=== PATIENT | male | born 1955 | race Caucasian/White ===

== ENCOUNTER → 2017-11-03 14:38 | Outpatient (CLI) | payer MEDICARE, SELFPAY ==
[2017-11-03 18:56] LABS: Amphetamine/Metha Screen,Urine Negative ng/mL (<1000); Barbiturates Screen,Urine Negative ng/mL (<200); Benzodiazepines Screen,Urine Positive ng/mL (<200); Cannabinoid Screen,Urine Positive ng/mL (<50); Cocaine Screen,Urine Negative ng/mL (<300); Methadone Screen,Urine Negative ng/mL (<300); Opiate Screen,Urine Positive ng/mL (<300); Phencyclidine Screen,Urine Negative ng/mL (<25)
== END ==
PROVIDERS: Visit Provider Emergency Medicine
DX: G89.29 Other chronic pain (principal)
CPT/HCPCS: 80305

== ENCOUNTER → 2017-12-26 14:28 | Outpatient (CLI) | payer MEDICARE, SELFPAY ==
[2017-12-26 18:17] LABS: Amphetamine/Metha Screen,Urine Negative ng/mL (<1000); Barbiturates Screen,Urine Negative ng/mL (<200); Benzodiazepines Screen,Urine Negative ng/mL (<200); Cannabinoid Screen,Urine Negative ng/mL (<50); Cocaine Screen,Urine Negative ng/mL (<300); Methadone Screen,Urine Negative ng/mL (<300); Opiate Screen,Urine Positive ng/mL (<300); Phencyclidine Screen,Urine Negative ng/mL (<25)
== END ==
PROVIDERS: Visit Provider Emergency Medicine
DX: Z79.899 Other long term (current) drug therapy (principal)
CPT/HCPCS: 80305

== ENCOUNTER → 2018-01-26 13:49 | Outpatient (CLI) | payer MEDICARE, SELFPAY ==
[2018-01-26 14:57] LABS: Amphetamine/Metha Screen,Urine Negative ng/mL (<1000); Barbiturates Screen,Urine Negative ng/mL (<200); Benzodiazepines Screen,Urine Negative ng/mL (<200); Cannabinoid Screen,Urine Negative ng/mL (<50); Cocaine Screen,Urine Negative ng/mL (<300); Methadone Screen,Urine Negative ng/mL (<300); Opiate Screen,Urine Negative ng/mL (<300); Phencyclidine Screen,Urine Negative ng/mL (<25)
== END ==
PROVIDERS: Visit Provider Emergency Medicine
DX: Z79.899 Other long term (current) drug therapy (principal)
CPT/HCPCS: 80305

== ENCOUNTER → 2018-02-23 18:21 | Outpatient (CLI) | payer MEDICARE, SELFPAY ==
[2018-02-23 18:44] LABS: Amphetamine/Metha Screen,Urine Negative ng/mL (<1000); Barbiturates Screen,Urine Negative ng/mL (<200); Benzodiazepines Screen,Urine Positive ng/mL (<200); Cannabinoid Screen,Urine Negative ng/mL (<50); Cocaine Screen,Urine Negative ng/mL (<300); Methadone Screen,Urine Negative ng/mL (<300); Opiate Screen,Urine Positive ng/mL (<300); Phencyclidine Screen,Urine Negative ng/mL (<25)
== END ==
PROVIDERS: Visit Provider Emergency Medicine
DX: G89.29 Other chronic pain (principal)
CPT/HCPCS: 80305

== ENCOUNTER → 2018-04-27 14:42 | Outpatient (CLI) | payer MEDICARE, MEDICAID, SELFPAY ==
[2018-04-27 15:35] LABS: Amphetamine/Metha Screen,Urine Negative ng/mL (<1000); Barbiturates Screen,Urine Negative ng/mL (<200); Benzodiazepines Screen,Urine Negative ng/mL (<200); Cannabinoid Screen,Urine Negative ng/mL (<50); Cocaine Screen,Urine Negative ng/mL (<300); Methadone Screen,Urine Negative ng/mL (<300); Opiate Screen,Urine Positive ng/mL (<300); Phencyclidine Screen,Urine Negative ng/mL (<25)
[2018-05-01 09:21] LABS: Alprazolam Negative (Cutoff=100); Benzodiazepines Negative ng/mL (Cutoff=100); Clonazepam Negative (Cutoff=100); Flurazepam Negative (Cutoff=100); Lorazepam Negative (Cutoff=100); Midazolam Negative (Cutoff=100); Temazepam Negative (Cutoff=100); Triazolam Negative (Cutoff=100)
== END ==
PROVIDERS: Visit Provider Emergency Medicine
DX: G89.29 Other chronic pain (principal); Z79.899 Other long term (current) drug therapy
CPT/HCPCS: 80305; 80346

== ENCOUNTER → 2018-10-23 17:14 | Outpatient (CLI) | payer MEDICARE, MEDICAID, SELFPAY ==
[2018-10-23 19:18] LABS: Amphetamine/Metha Screen,Urine Negative ng/mL (<1000); Barbiturates Screen,Urine Negative ng/mL (<200); Benzodiazepines Screen,Urine Negative ng/mL (<200); Cannabinoid Screen,Urine Negative ng/mL (<50); Cocaine Screen,Urine Negative ng/mL (<300); Methadone Screen,Urine Negative ng/mL (<300); Opiate Screen,Urine Positive ng/mL (<300); Phencyclidine Screen,Urine Negative ng/mL (<25)
== END ==
PROVIDERS: Visit Provider Emergency Medicine
DX: G89.29 Other chronic pain (principal)
CPT/HCPCS: 80305

== ENCOUNTER → 2019-01-14 16:41 | Outpatient (CLI) | payer MEDICARE, MEDICAID, SELFPAY ==
[2019-01-14 18:19] LABS: Amphetamine/Metha Screen,Urine Negative ng/mL (<1000); Barbiturates Screen,Urine Negative ng/mL (<200); Benzodiazepines Screen,Urine Negative ng/mL (<200); Cannabinoid Screen,Urine Negative ng/mL (<50); Cocaine Screen,Urine Negative ng/mL (<300); Methadone Screen,Urine Negative ng/mL (<300); Opiate Screen,Urine Positive ng/mL (<300); Phencyclidine Screen,Urine Negative ng/mL (<25)
[2019-01-26 02:07] LABS: Alprazolam Negative (Cutoff=100); Benzodiazepines Negative ng/mL (Cutoff=100); Clonazepam Negative (Cutoff=100); Flurazepam Negative (Cutoff=100); Lorazepam Negative (Cutoff=100); Midazolam Negative (Cutoff=100); Temazepam Negative (Cutoff=100); Triazolam Negative (Cutoff=100)
== END ==
PROVIDERS: Visit Provider Nurse Practitioner Family
DX: G89.29 Other chronic pain (principal); I10 Essential (primary) hypertension; Z79.899 Other long term (current) drug therapy
CPT/HCPCS: 80305; 80346

== ENCOUNTER → 2020-11-20 08:00 | Outpatient (CLI) | payer MEDICARE, MEDICAID, SELFPAY ==
[2020-11-21 11:43] LABS: Barbiturates Screen,Urine Negative ng/ml (<200)
[2020-11-21 11:44] LABS: Amphetamine/Metha Screen,Urine Negative ng/ml (<1000); Benzodiazepines Screen,Urine Negative ng/ml (<200)
[2020-11-21 11:45] LABS: Cannabinoid Screen,Urine Negative ng/ml (<50)
[2020-11-21 11:46] LABS: Cocaine Screen,Urine Negative ng/ml (<300); Methadone Screen,Urine Negative ng/ml (<300)
[2020-11-21 11:47] LABS: Opiate Screen,Urine Positive ng/ml (<300); Phencyclidine Screen,Urine Negative ng/ml (<25)
== END ==
PROVIDERS: Visit Provider Emergency Medicine
DX: G89.4 Chronic pain syndrome (principal)
CPT/HCPCS: 80305

== ENCOUNTER 2021-02-20 12:20 | Observation (INO) | payer MEDICARE, MEDICAID, SELFPAY ==
[2021-02-20] VITALS (13 sets, daily range): BP systolic 128–173; BP diastolic 60–98; PULSE 85–115; RESP 23–34; TEMP 36.7–37.3; O2SAT 92–99; BMI 26.9; BMI 26.1; BMI 26.2
--- NOTE | 2021-02-20 12:27 | XR_ITS ---
PROCEDURE INFORMATION: Exam: XR Chest Exam date and time: 02/20/2021 12:27 PM Age: 65 years old Clinical indication: Shortness of breath; Patient HX: SOB, copd, smoker TECHNIQUE: Imaging protocol: XR of the chest. Views: 1 view. COMPARISON: No relevant prior studies available. FINDINGS: Tubes, catheters and devices: Loop recording device projects over the left hemithorax. Lungs: Unremarkable. No consolidation. Pleural spaces: Unremarkable. No pleural effusion. No pneumothorax. Heart/Mediastinum: Unremarkable. No cardiomegaly. Bones/joints: Median sternotomy wires. Partially imaged ACDF hardware. Reverse right total shoulder arthroplasty. IMPRESSION: No acute cardiopulmonary abnormality.
--- NOTE | 2021-02-20 12:34 | ECG_ITS ---
APPROVED REPORT Exam: Resting ECG HR:95 bpm ECG Measurements Heart Rate 95 AXES MS 118 P 79 QRSd 86 QRS -11 QT 368 T 91 QTc 462 Conclusion Normal sinus rhythm Nonspecific ST and T wave abnormality Prolonged QT Abnormal ECG Electronically signed by : Franki Young MD 02/20/2021 21:00:35
[2021-02-20 12:38] LABS: Coronavirus 19, PCR Not Detected (NotDetected); Influenza A, PCR Not Detected (NotDetected); Influenza B, PCR Not Detected (NotDetected)
--- NOTE | 2021-02-20 12:47 | PC.NURSE ---
rad at bedside
[2021-02-20 13:15] LABS: Basophils # 0.1 K/mm3 (0-0.2); Basophils % 0.4 % (0.1-2.0); Eosinophils # 0.3 K/mm3 (0.0-0.4); Eosinophils % 2.2 % (0.1-12.0); Hematocrit 41.8 % (42.0-52.0); Hemoglobin 13.7 g/dL (14.1-18.0); Lymphocytes # 2.4 K/mm3 (0.7-4.5); Mean Corpuscular HGB Conc 32.7 g/dL (31.8-35.4); Mean Corpuscular Hemoglobin 30.4 pg (27.0-31.2); Mean Corpuscular Volume 92.9 fl (80-94); Monocytes # 0.8 K/mm3 (0.1-1.0); Monocytes % 5.1 % (1.7-9.3); Neutrophils # 11.6 K/mm3 (1.8-7.8); Neutrophils % 76.3 % (37.0-80.0); Platelet Count 436 K/mm3 (142-424); Red Cell Distribution Width 14.5 % (11.5-17.5); White Blood Count 15.2 K/mm3 (4.8-10.8)
[2021-02-20 13:16] LABS: Chloride 102 mmol/L (98-107); Sodium 139 mmol/L (136-145)
[2021-02-20 13:18] LABS: Blood Urea Nitrogen 10 mg/dl (9-20); Creatinine Clearance Estimated 81 mL/min (50-200); Estimated Glomerular Filt Rate 97 ml/min (>60); GFR (African American) 117 ML/MIN (>60)
[2021-02-20 13:19] LABS: Alanine Aminotransferase 16 U/L (12-78); Albumin Level 4.1 g/dl (3.5-5.0); Albumin/Globulin Ratio 1.3 (1.1-1.8); Alkaline Phosphatase 80 U/L (38-126); Aspartate Amino Transferase 28 U/L (17-59); Bilirubin,Total 0.6 mg/dl (0.2-1.3); Calcium 8.5 mg/dl (8.4-10.2); Carbon Dioxide 27 mmol/L (22.0-30.0); Globulin 3.1 g/dL (1.3-3.2); Glucose 103 mg/dl (74-100); Total Protein,Serum 7.2 g/dl (6.3-8.2)
[2021-02-20 13:21] LABS: MANUAL DIFFERENTIAL MANUAL DIFFERENTIAL (MANUAL DIFF)
[2021-02-20 13:27] LABS: Lactic Acid 0.9 mmol/L (0.7-2.1)
[2021-02-20 13:32] LABS: Troponin I < 0.01 ng/ml (0.00-0.034)
[2021-02-20 13:44] LABS: Eosinophils % 1 % (0-3); Lymphocytes % 15 % (10-50); Monocytes % 4 % (2-9); Neutrophils % 80 % (42-76); Total Cells Counted 100
[2021-02-20 13:45] LABS: Hypochromasia 1+; Macrocytosis 1+; Platelet Estimate Normal
--- NOTE | 2021-02-20 15:15 | HMH.EDGENADL ---
ED Disposition Clinical Impression: COPD exacerbation Disposition: Admitted As Inpatient Condition on Discharge: Fair Instructions: DI for Chronic Obstructive Pulmonary Disease Referrals: Jordan Schmidt MD [Primary Care Provider] - - Critical Care Critical Care Time: No Attestation: On 02/20/21, the high probability of a clinically significant, sudden or life threatening deterioration of the following system(s) required my full and direct attention, intervention and personal management. The time I documented below is in addition to time spent performing reported procedures but includes the following listed in this critical care notation. Medical Decision Making - Medical Records Medical records reviewed: Yes: I reviewed the patient's medical records. - Ricki Inquiry Pt receiving controlled substance: No Vital Signs: 02/20/21 12:21 Temperature 98.2 F Temperature Source Oral Pulse Rate [Radial] 102 H Respiratory Rate 30 H Blood Pressure [Right Arm] 173/98 H Blood Pressure Mean [Right Arm] 123 Blood Pressure Position [Right Arm] Sitting 02 Sat by Pulse Oximetry 98 Oxygen Delivery Method Room Air - Lab Data Lab Results 02/20/21 12:31: SARS-CoV-2 (PCR) Not detected, Influenza A Untype (PCR) Not detected, Influenza Type B (PCR) Not detected 02/20/21 12:45: WBC 15.2 H, RBC 4.50 L, Hgb 13.7 L, Hct 41.8 L, MCV 92.9, MCH 30.4, MCHC 32.7, RDW 14.5, Plt Count 436 H, MPV 9.0, Neut % (Auto) 76.3, Lymph % (Auto) 16.0, [place] % (Auto) 5.1, Eos % (Auto) 2.2, Baso % (Auto) 0.4, Neut # (Auto) 11.6 H, Lymph # (Auto) 2.4, [place] # (Auto) 0.8, Eos # (Auto) 0.3, Baso # (Auto) 0.1, Total Counted 100, Neutrophils % (Manual) 80 H, Lymphocytes % (Manual) 15, Monocytes % (Manual) 4, Eosinophils % (Manual) 1, Platelet Estimate Normal, Hypochromasia 1+, Macrocytosis 1+ 02/20/21 12:45: Sodium 139, Potassium 4.0, Chloride 102, Carbon Dioxide 27, Anion Gap 14.0, BUN 10, Creatinine 0.80, Estimated Creat Clear 81, Estimated GFR 97, Est GFR ( Amer) 117, Glucose 103 H, Calcium 8.5, Total Bilirubin 0.6, AST 28, ALT 16, Alkaline Phosphatase 80, Troponin I < 0.01, Total Protein 7.2, Albumin 4.1, Globulin 3.1, Albumin/Globulin Ratio 1.3 02/20/21 12:45: Lactate 0.9 Result diagrams: 02/20/21 12:45 02/20/21 12:45 Orders (Tests/Meds): ED MEDICATIONS Generic Name Dose Route Start Last Admin Trade Name Freq PRN Reason Stop Dose Admin Acetaminophen 650 mg 02/20/21 15:02 Acetaminophen 325mg Tab PO 03/22/21 15:01 Q4HP PRN Fever or Mild Pain Hydrocodone Bitart/Acetaminophen 1 tab 02/20/21 15:02 Hydrocodone/Apap 5/325 Mg Tablet PO 03/22/21 15:01 Q4HP PRN Mild to Moderate Pain Albuterol/Ipratropium 3 ml 02/20/21 14:00 02/20/21 14:15 Ipratropium/Albuterol 3 Ml [facility] [place] 03/22/21 13:59 3 ml Q1H ROLO Administration Enoxaparin Sodium 40 mg 02/21/21 09:00 Enoxaparin 40mg/0.4ml Syringe SQ 03/23/21 08:59 DAILY ROLO Azithromycin 500 mg/ Sodium 250 mls @ 250 mls/hr 02/20/21 15:00 Chloride IV 03/06/21 14:59 Q24H ROLO Ceftriaxone Sodium 1 gm/ 50 mls @ 100 mls/hr 02/20/21 15:00 02/20/21 15:13 Sodium Chloride IV 03/06/21 14:59 100 mls/hr Q24H ROLO Administration Nicotine 21 mg 02/20/21 15:02 Nicotine 21mg/24hr Patch TD 03/22/21 15:01 DAILYP PRN Nicotine Cravings Ondansetron HCl 4 mg 02/20/21 15:02 Ondansetron 4mg/2ml Vial IV 03/22/21 15:01 Q8HP PRN Nausea Sodium Chloride 3 ml 02/20/21 15:00 Sodium Chloride 3% 15ml [facility] [place] 03/22/21 14:59 ONCE PRN INDUCE SPUTUM COLLECTION Discontinued Medications Generic Name Dose Route Start Last Admin Trade Name Emilq PRN Reason Stop Dose Admin Albuterol/Ipratropium 3 ml 02/20/21 13:16 02/20/21 13:31 Ipratropium/Albuterol 3 Ml Neb IH 02/20/21 13:17 3 ml ONCE ONE Administration Ketorolac Tromethamine 30 mg 02/20/21 13:56 02/20/21 14:05 Ketorolac 30mg/Ml Vial IV 11
--- NOTE | 2021-02-20 15:44 | PC.NURSE ---
attempted to call report, call back in about 5 mins the nurse is in a pt's room
--- NOTE | 2021-02-20 17:06 | PC.NURSE ---
pt arrived to the floor at this time
--- NOTE | 2021-02-20 18:50 | PC.NURSE ---
PT IS OAX4, ABLE TO MAKE NEEDS KNOWN TO STAFF. ADMITTED FOR COPD EXACERBATION.
--- NOTE | 2021-02-20 20:39 | HMH.HP ---
*Admission Date: 02/20/21 *Chief complaint: sob *History of present illness: this patient presented to pcp office with progressive sob-pt was sent to the ed- 5-year-old male with past medical history of COPD and hypertension who presents to the emergency department with chief complaint of shortness of breath. Patient states that has been experiencing worsening shortness of breath for the last month despite being on his home inhalers. Patient saw Dr. Schmidt in clinic today, and was told to come to the emergency department to be admitted to the hospital. On arrival, patient is 88% O2 sats on room air, but tachypneic and increased work of breathing. He admits to thick, large amount of sputum production that is foul, fevers or chills. pt was admitted for treatment with ivf and meds and resp treatment [facility] History I have reviewed the patient's past medical history: Yes Medical History: Reports:: Anxiety, Congestive Heart Failure, Chronic Obstructive Pulmonary Disease (COPD), Diabetes Mellitus Type 2, Hyperlipidemia, Hypertension, Peripheral Artery Disease *Have you ever received a pneumonia vaccine?: No *Have you received a flu vaccine this season?: No Laterality Cases: Right: Arthroscopy Knee, Arthroscopy Shoulder Other Surgeries: Yes: Appendectomy, CABG, Cardiac Surgery, Cholecystectomy, Colonoscopy Amputation: No Fractures: No - *Social History Last grade of school completed: High school graduate Smoking Status: Former smoker Tobacco Type: cigarettes # Packs/Day (cigarettes): 1 #Yrs smoked (if former smoker): 47 Alcohol Intake: never Substance Use Type: denies use *Occupational Status:: disabled Housing: house *Travel in the last 8 weeks: None - Psychiatric History Pschychiatric History:: Reports:: Anxiety Family Hx:: Cancer, Heart Attack, Hypertension, Coronary Artery Disease, Hyperlipidemia Review of Systems - Review of Systems Review of systems:: pertinent systems reviewed and negative unless documented below - Constitutional Reports chills, Reports fever(s), Reports weakness - Eyes Denies change in vision - ENT Denies sore throat - *Cardiovascular Reports shortness of breath, Denies chest pain - *Respiratory Reports change in phlegm color, Reports cough, Reports shortness of breath, Denies coughing up blood - *Gastrointestinal Denies abdominal pain - *Genitourinary Denies blood in urine - *Musculoskeletal Denies joint swelling - Integumentary/Breasts Denies rash - *Neurologic Denies abnormal speech, Denies dizziness, Denies headache(s), Denies loss of vision, Denies seizure-like activity - Psychiatric Denies behavioral changes Meds Home Medications Medication Instructions Recorded Confirmed Type ipratropium 0.5 mg-albuterol 3 mg 3 ml INHALATION Q6H ml 11/03/17 02/20/21 History (2.5 mg base)/3 mL nebulization soln albuterol sulfate 90 mcg/actuation 2 puff INHALATION Q6H PRN #18 g 07/01/19 02/20/21 Rx aerosol inhaler albuterol sulfate 2.5 mg/0.5 mL 5 mg INHALATION QID PRN #30 each 11/16/19 02/20/21 Rx solution for nebulization Atorvastatin Calcium [Lipitor 40mg 40 mg PO QHS 02/20/21 02/20/21 History Tab] Fluticasone/Umeclidin/Vilanter 1 inh INHALATION DAILY 02/20/21 02/20/21 History [Trelegy Ellipta] Gabapentin 800 mg PO BID 02/20/21 02/20/21 History Metoprolol Tartrate [Lopressor 75 mg PO BID 02/20/21 02/20/21 History 25mg tablet] diazePAM [Valium 5mg tablets] 5 mg PO BID 02/20/21 02/20/21 History lisinopriL [Prinivil 10mg Tablet] 10 mg PO DAILY 02/20/21 02/20/21 History Oxycodone HCl [Oxycodone 5mg tab 15 mg PO QIDP PRN 02/21/21 02/21/21 History (IR)] Allergies Allergy/AdvReac Type Severity Reaction Status Date / Time codeine Allergy Intermediate Rash Verified 02/20/21 11:44 ketorolac [From Toradol] AdvReac Mild Verified 02/20/21 11:44 Exam Vital signs and Labs for Last 24 Hours: Temp Pulse Resp BP Pulse Ox 98.1 F 115 H 34 H 158/66
--- NOTE | 2021-02-20 23:04 | P.CONPHA_ITS ---
[facility] Pharmacy VTE Monitoring - Patient Demographics Admission date: 02/20/21 Report Date: 02/20/21 Time: 23:04 Allergies/Adverse Reactions: Patient Allergies codeine Allergy (Intermediate, Verified 02/20/21 11:44) Rash ketorolac [From Toradol] Adverse Reaction (Mild, Verified 02/20/21 11:44) Height: 1.73 m Weight: 78.046 kg Patient Problems: Current Active Problems COPD exacerbation (Acute) - VTE Risk Labs: VTE Related Lab Results Hgb 13.7 g/dL (14.1-18.0) L 02/20/21 12:45 Hct 41.8 % (42.0-52.0) L 02/20/21 12:45 Plt Count 436 K/mm3 (142-424) H 02/20/21 12:45 BUN 10 mg/dl (9-20) 02/20/21 12:45 Creatinine 0.80 mg/dl (0.66-1.25) 02/20/21 12:45 Estimated Creat Clear 81 mL/min (50-200) 02/20/21 12:45 Clinical Trial Participant: No - Prophylaxis VTE Prophylaxis Ordered?: Yes Types of VTE Prophylaxis: TEDS Knee High, Pharmacological Pharmacologic Type: Enoxaparin
--- NOTE | 2021-02-20 23:20 | PC.NURSE ---
pt states he can not take [place] because he will get kicked out of pain control program.
[2021-02-21] VITALS (9 sets, daily range): BP systolic 112–135; BP diastolic 56–74; PULSE 88–107; RESP 18–22; TEMP 36.5–37.1; O2SAT 92–97; BMI 25.9
--- NOTE | 2021-02-21 05:13 | PC.NURSE ---
Patient has been very agitated about wanting pain medication. Patient states that he takes oxycodone 15mg PO every 4 hours daily. External medication history was looked at and no reconcile of said medication is noted. Patient refuses to take norco (see previous nurse note). Pecocet 5mg patient agreed to take. MD aware.
[2021-02-21 05:38] LABS: POC Glucose,Bedside 267 (70-110)
--- NOTE | 2021-02-21 08:29 | HMH.PHAINT ---
Verified home medication list with [facility] pharmacy and Dr. Schmidt office visits
--- NOTE | 2021-02-21 08:46 | HMH.ACPN2 ---
Internal Medicine - PN: Subj *Date: 02/21/21 *Time: 08:00 Interval history: pt sitting up in bed asking about pain meds, states he feels bad Exam Vital signs and Labs for Last 24 Hours: Temp Pulse Resp BP Pulse Ox 98.2 F 102 H 20 135/61 95 02/21/21 08:00 02/21/21 08:00 02/21/21 08:00 02/21/21 08:00 02/21/21 08:00 Laboratory Results - last 24 hr 02/20/21 12:31: SARS-CoV-2 (PCR) Not detected, Influenza A Untype (PCR) Not detected, Influenza Type B (PCR) Not detected 02/20/21 12:45: WBC 15.2 H, RBC 4.50 L, Hgb 13.7 L, Hct 41.8 L, MCV 92.9, MCH 30.4, MCHC 32.7, RDW 14.5, Plt Count 436 H, MPV 9.0, Neut % (Auto) 76.3, Lymph % (Auto) 16.0, [place] % (Auto) 5.1, Eos % (Auto) 2.2, Baso % (Auto) 0.4, Neut # (Auto) 11.6 H, Lymph # (Auto) 2.4, [place] # (Auto) 0.8, Eos # (Auto) 0.3, Baso # (Auto) 0.1, Total Counted 100, Neutrophils % (Manual) 80 H, Lymphocytes % (Manual) 15, Monocytes % (Manual) 4, Eosinophils % (Manual) 1, Platelet Estimate Normal, Hypochromasia 1+, Macrocytosis 1+ 02/20/21 12:45: Sodium 139, Potassium 4.0, Chloride 102, Carbon Dioxide 27, Anion Gap 14.0, BUN 10, Creatinine 0.80, Estimated Creat Clear 81, Estimated GFR 97, Est GFR ( Amer) 117, Glucose 103 H, Calcium 8.5, Total Bilirubin 0.6, AST 28, ALT 16, Alkaline Phosphatase 80, Troponin I < 0.01, Total Protein 7.2, Albumin 4.1, Globulin 3.1, Albumin/Globulin Ratio 1.3 02/20/21 12:45: Lactate 0.9 02/20/21 21:41: POC Glucose 267 H I & O for Last 24 hours: Intake & Output 02/18/21 02/19/21 02/20/21 02/21/21 11:59 11:59 11:59 11:59 Intake Total 960 / 960 Balance 960 / 960 Weight 171 lb - Constitutional no acute distress - *Routine HEENT Exam Head: Present: normocephalic Eye: Present: PERRL ENT: Present: mucous membranes moist - *Routine Neck Exam Present: supple. Absent: lymphadenopathy - *Routine Respiratory Exam Present: wheezes - *Routine Cardiovascular Exam Present: RRR - *Routine Abdominal Exam Present: soft, normoactive bowel sounds. Absent: tenderness - *Routine Extremities Exam Absent: cyanosis, clubbing, edema - *Routine Skin Exam Present: intact - *Routine Neurological Exam Present: alert, oriented X3 Assessment and Plan (1) COPD exacerbation Status: Acute Category: Medical Code(s): J44.1 - Chronic obstructive pulmonary disease with (acute) exacerbation (2) DDD (degenerative disc disease), cervical Status: Acute Category: Medical Code(s): M50.30 - Other cervical disc degeneration, unspecified cervical region (3) Diabetes Status: Acute Qualifiers: Diabetes mellitus type: type 2 Diabetes mellitus care home insulin use: without director long term care use Diabetes mellitus complication status: without complication Qualified Code(s): E11.9 - Type 2 diabetes mellitus without complications Category: Medical Code(s): E11.9 - Type 2 diabetes mellitus without complications (4) Chronic pain Status: Chronic Qualifiers: Chronic pain type: chronic pain syndrome Qualified Code(s): G89.4 - Chronic pain syndrome Category: Medical Code(s): G89.29 - Other chronic pain (5) Hypertension Status: Chronic Qualifiers: Hypertension type: essential hypertension Qualified Code(s): I10 - Essential (primary) hypertension Category: Medical Code(s): I10 - Essential (primary) hypertension - Assessment and plan all Dx Assessment and Plan for all problems:: rounded with dr nascimento all orders per dr nascimento pulm consult.
--- NOTE | 2021-02-21 08:57 | HMH.PHAINT ---
Verified home medication list with [facility] pharmacy
[2021-02-21 09:08] LABS: Chloride 103 mmol/L (98-107); Potassium 4.4 mmoL/L (3.5-5.1); Sodium 139 mmol/L (136-145)
[2021-02-21 09:10] LABS: Blood Urea Nitrogen 18 mg/dl (9-20); Creatinine Clearance Estimated 81 mL/min (50-200); Estimated Glomerular Filt Rate 85 ml/min (>60); GFR (African American) 102 ML/MIN (>60)
[2021-02-21 09:11] LABS: Alanine Aminotransferase 23 U/L (12-78); Albumin Level 3.9 g/dl (3.5-5.0); Albumin/Globulin Ratio 1.3 (1.1-1.8); Alkaline Phosphatase 75 U/L (38-126); Anion Gap 15.4 mEq/L (5-15); Aspartate Amino Transferase 29 U/L (17-59); Bilirubin,Total 0.2 mg/dl (0.2-1.3); Calcium 8.8 mg/dl (8.4-10.2); Carbon Dioxide 25 mmol/L (22.0-30.0); Cholesterol 127 mg/dl (140-200); Glucose 232 mg/dl (74-100); Magnesium 1.8 mg/dl (1.6-2.3); Phosphorous 2.6 mg/dl (2.5-4.5); Total Protein,Serum 6.9 g/dl (6.3-8.2); Triglycerides 63 mg/dl (30-150); VLDL Cholesterol 13 mg/dL (0-40)
[2021-02-21 09:12] LABS: HDL Cholesterol 32 mg/dl (40-60)
[2021-02-21 09:19] LABS: Basophils % 0.1 % (0.1-2.0); Eosinophils # 0.1 K/mm3 (0.0-0.4); Eosinophils % 0.4 % (0.1-12.0); Hematocrit 42.8 % (42.0-52.0); Hemoglobin 13.9 g/dL (14.1-18.0); Lymphocytes # 1.1 K/mm3 (0.7-4.5); Lymphocytes % 4.5 % (10-50); Mean Corpuscular HGB Conc 32.5 g/dL (31.8-35.4); Mean Corpuscular Hemoglobin 30.3 pg (27.0-31.2); Mean Corpuscular Volume 93.3 fl (80-94); Mean Platelet Volume 9.1 fl (7.4-10.4); Monocytes # 0.6 K/mm3 (0.1-1.0); Monocytes % 2.2 % (1.7-9.3); Neutrophils % 92.8 % (37.0-80.0); Platelet Count 449 K/mm3 (142-424); Red Blood Count 4.59 M/mm3 (4.60-6.20); Red Cell Distribution Width 14.2 % (11.5-17.5); White Blood Count 24.8 K/mm3 (4.8-10.8)
[2021-02-21 09:21] LABS: MANUAL DIFFERENTIAL MANUAL DIFFERENTIAL (MANUAL DIFF)
[2021-02-21 09:22] LABS: Direct LDL Cholesterol 72.18 mg/dL (100-129)
[2021-02-21 09:24] LABS: INR 1.01 (0.9-1.1); Prothrombin Time 11.4 seconds (10.1-12.5)
[2021-02-21 09:57] LABS: Lymphocytes % 5 % (10-50); Monocytes % 2 % (2-9); Neutrophils % 92 % (42-76); Platelet Estimate Marked Increase; RBC Morphology Normal; Total Cells Counted 100
--- NOTE | 2021-02-21 11:30 | HMH.PULMCON ---
*Admission Date: 02/20/21 *Reason for consult:: COPD exacerbation *History of present illness: Ms. Romero is a 65-year-old male history of COPD on triple inhaler therapy at home not on any oxygen therapy, CAD status post CABG in 2014 presented to the hospital worsening respiratory distress cough and productive phlegm and pulmonary was called for further management. [facility] History Medical History: Reports:: Anxiety, Congestive Heart Failure, Chronic Obstructive Pulmonary Disease (COPD), Diabetes Mellitus Type 2, Hyperlipidemia, Hypertension, Peripheral Artery Disease *Have you ever received a pneumonia vaccine?: No *Have you received a flu vaccine this season?: No Laterality Cases: Right: Arthroscopy Knee, Arthroscopy Shoulder Other Surgeries: Yes: Appendectomy, CABG, Cardiac Surgery, Cholecystectomy, Colonoscopy Amputation: No Fractures: No - *Social History Last grade of school completed: High school graduate Smoking Status: Former smoker Tobacco Type: cigarettes # Packs/Day (cigarettes): 1 #Yrs smoked (if former smoker): 47 Alcohol Intake: never Substance Use Type: denies use *Occupational Status:: disabled Housing: house *Travel in the last 8 weeks: None - Psychiatric History Pschychiatric History:: Reports:: Anxiety Family Hx:: Cancer, Heart Attack, Hypertension, Coronary Artery Disease, Hyperlipidemia ROS - Cons Reports body ache(s) - ENT Denies bleeding gums - Card Reports shortness of breath, Reports shortness of breath with activity - Resp Respiratory: Reports shortness of breath, Reports chest congestion, Reports cough, Reports excessive phlegm production, Reports cough with sputum production, Reports wheezing - GI Gastrointestingal: Denies: abdominal pain - Psych Denies thoughts of hurting/killing others, Denies thoughts of hurting/killing yourself Meds Home Medications Medication Instructions Recorded Confirmed Type ipratropium 0.5 mg-albuterol 3 mg 3 ml INHALATION Q6H ml 11/03/17 02/20/21 History (2.5 mg base)/3 mL nebulization soln albuterol sulfate 90 mcg/actuation 2 puff INHALATION Q6H PRN #18 g 07/01/19 02/20/21 Rx aerosol inhaler albuterol sulfate 2.5 mg/0.5 mL 5 mg INHALATION QID PRN #30 each 11/16/19 02/20/21 Rx solution for nebulization Atorvastatin Calcium [Lipitor 40mg 40 mg PO QHS 02/20/21 02/20/21 History Tab] Fluticasone/Umeclidin/Vilanter 1 inh INHALATION DAILY 02/20/21 02/20/21 History [Trelegy Ellipta] Gabapentin 800 mg PO BID 02/20/21 02/20/21 History Metoprolol Tartrate [Lopressor 75 mg PO BID 02/20/21 02/20/21 History 25mg tablet] diazePAM [Valium 5mg tablets] 5 mg PO BID 02/20/21 02/20/21 History lisinopriL [Prinivil 10mg Tablet] 10 mg PO DAILY 02/20/21 02/20/21 History Oxycodone HCl [Oxycodone 5mg tab 15 mg PO QIDP PRN 02/21/21 02/21/21 History (IR)] Allergies Allergy/AdvReac Type Severity Reaction Status Date / Time codeine Allergy Intermediate Rash Verified 02/20/21 11:44 ketorolac [From Toradol] AdvReac Mild Verified 02/20/21 11:44 Exam - Constitutional Constitutional:: Present: no acute distress, comfortable - HENMT Exam HENMT: Present: normocephalic, atraumatic - Eye Exam Eyes:: Present: normal appearance both eyes and related structures - Neck Exam Neck:: Present: normal visual inspection - Respiratory Exam Respiratory:: Present: able to speak in complete sentences, respiratory distress, wheezing. Absent: accessory muscle use - Cardiovascular Exam Cardiac:: Present: S1, S2 - GI Exam GI:: Present: soft, no tenderness - Skin Exam Skin: Present: warm - Neurological Exam Neurological: Present: alert, awake, normal cognition - Extremities Exam Extremities: Present: no cyanosis, no clubbing, no edema Internal Medicine - CN: Reslt - Labs CBC & Chem 7: 02/21/21 08:34 02/21/21 08:34 Labs: Short CBC 02/20/21 02/21/21 Range/Units 12:45 08:34 WBC 15.2 H 24.8 H* D (4.8-10.8) K/mm3 Hgb
--- NOTE | 2021-02-21 18:40 | PC.NURSE ---
Patient is non tele and on room air. Patient wears 2L NC prn. Patient is up ad-wilson. Alert and oriented times 4. Phone and call light in reach and bed in lowest position. Will continue to monitor.
[2021-02-22] VITALS (19 sets, daily range): BP systolic 113–142; BP diastolic 59–86; PULSE 56–104; RESP 16–36; TEMP 36.6–37.5; O2SAT 91–98; BMI 27.8
--- NOTE | 2021-02-22 01:59 | ECG_ITS ---
APPROVED REPORT Exam: Resting ECG HR:100 bpm ECG Measurements Heart Rate 100 AXES AL 120 P 69 QRSd 86 QRS -17 QT 350 T 131 QTc 451 Conclusion Normal sinus rhythm Nonspecific ST and T wave abnormality Abnormal ECG Electronically signed by : Franki Young MD 02/22/2021 20:22:33
--- NOTE | 2021-02-22 02:26 | XR_ITS ---
PROCEDURE INFORMATION: Exam: XR Chest Exam date and time: 02/22/2021 2:26 AM Age: 65 years old Clinical indication: Sternal or substernal pain; Prior surgery; Surgery date: 6+ months; Surgery type: Cabg 5 years ago; Additional info: Chest pain protocol TECHNIQUE: Imaging protocol: XR of the chest. Views: 1 view. COMPARISON: CR XR CHEST PORTABLE 02/20/2021 12:53 PM FINDINGS: Lungs: Chronic parenchymal changes within both lung petty. There is no evidence of alveolar consolidation. Pulmonary vascular markings do not appear congested. Pleural spaces: Unremarkable. No pleural effusion. No pneumothorax. Heart/Mediastinum: This patient is status post median sternotomy and cardiac surgery. A loop recorder is in place. No cardiomegaly. Bones/joints: There are changes of prior cervical fusion. Right reverse humeral head total shoulder arthroplasty identified. Mild degenerative changes of the left shoulder. IMPRESSION: No evidence of acute intrathoracic disease.
[2021-02-22 03:02] LABS: Basophils # 0.1 K/mm3 (0-0.2); Basophils % 0.4 % (0.1-2.0); Eosinophils % 0.1 % (0.1-12.0); Hematocrit 35.4 % (42.0-52.0); Lymphocytes % 3.7 % (10-50); Mean Corpuscular HGB Conc 33.4 g/dL (31.8-35.4); Mean Corpuscular Hemoglobin 30.1 pg (27.0-31.2); Mean Corpuscular Volume 90.1 fl (80-94); Mean Platelet Volume 7.8 fl (7.4-10.4); Monocytes # 0.7 K/mm3 (0.1-1.0); Monocytes % 2.6 % (1.7-9.3); Neutrophils % 93.2 % (37.0-80.0); Platelet Count 394 K/mm3 (142-424); Red Blood Count 3.93 M/mm3 (4.60-6.20); Red Cell Distribution Width 14.3 % (11.5-17.5); White Blood Count 26.9 K/mm3 (4.8-10.8)
[2021-02-22 03:06] LABS: Anion Gap 10.2 mEq/L (5-15); Blood Urea Nitrogen 39 mg/dl (9-20); Calcium 8.4 mg/dl (8.4-10.2); Carbon Dioxide 32 mmol/L (22.0-30.0); Chloride 98 mmol/L (98-107); Creatinine Clearance Estimated 62 mL/min (50-200); Estimated Glomerular Filt Rate 55 ml/min (>60); GFR (African American) 67 ML/MIN (>60); Glucose 152 mg/dl (74-100); Potassium 5.2 mmoL/L (3.5-5.1); Sodium 135 mmol/L (136-145)
[2021-02-22 03:09] LABS: MANUAL DIFFERENTIAL MANUAL DIFFERENTIAL (MANUAL DIFF)
--- NOTE | 2021-02-22 03:19 | PC.NURSE ---
0213 This RN notified of pt c/o chest pain 0214 Assessed pt, vitals: bp 139/86, hr 104, O2 91% RA, rr 36, temp 97.8. Pt placed on 2 L nc. Pt c/o mid chest pain that radiates to back. Rating pain 9/10 and is constant but does get worse intermittently. Pt also c/o nausea, diaphoretic. Pt states the pain woke him from his sleep. 021 STAT EKG 022 MD read EKG, gave order to do chest pain protocol 0223 Stat troponin, CBC, BNP ordered 223 324 mg Aspirin given to pt 022 Pt placed on tele Nitro given at 0226, 0231, 0236 with no relief stated by pt. 0306 vitals: bp 113/67, hr 94, O2 95% on 2 L nc, rr 24. Pt is lying in bed. Pt states he is feeling a little better. Pt rates pain 5/10 at this time.
[2021-02-22 03:22] LABS: Hemoglobin 11.8 g/dL (14.1-18.0)
[2021-02-22 03:23] LABS: Troponin I < 0.01 ng/ml (0.00-0.034)
[2021-02-22 03:38] LABS: Lymphocytes % 8 % (10-50); Neutrophils % 92 % (42-76); Total Cells Counted 100
[2021-02-22 03:42] LABS: Platelet Estimate Normal; RBC Morphology Normal
[2021-02-22 08:00] LABS: Chloride 103 mmol/L (98-107); Sodium 136 mmol/L (136-145)
--- NOTE | 2021-02-22 08:00 | CA_ITS ---
APPROVED REPORT EXAM: Comprehensive 2D, Doppler, and color-flow Echocardiogram Surfboard Designer: Queenie Garcia CRT Ht: 5 ft 8 in Wt: 178lbs BSA: 1.94 BP: 170/98 mmHg Indications: Chest Pain, COPD, Diabetes, Hyperlipidemia, Hypertension/HDD, smoker, loop recorder, , CABG, PAD, 2D Dimensions LVOT 2.00 cm (M/F) 1.5-2.5 LA Volume 61.70 mL LA Volume Index 31.60 mL/m2 (M/F) 16-34 M-Mode Dimensions RVDd 3.01 cm (0.9-2.6) LA Diam 3.16 cm (1.9-4.0) LVDd 5.69 cm (3.5-5.7) Ao Diam 3.66 cm (2.0-3.7) LVDs 4.12 cm (3.5-5.7) IVSd 1.25 cm (0.6-1.1) PWd 0.90 cm (0.6-1.1) EF (Teich) 52.90% FS 27.60% EDV (Teich) 159.40 mL TAPSE 2.18 (<1.7) ESV (Teich) 75.10 mL LV Diastology E Decel Time 150.00 (160-240 msec) E/A Ratio 0.65 MED E' 7.60 (< 7 cm/sec) MED A' 12.90 cm/s E'/MED E' Ratio 7.75 (>14) LAT E' 8.90 (<10 cm/sec) LAT A' 11.70 cm/s E/LAT E' Ratio 6.62 (>14) Aortic Valve AO Peak GR. 9.10 mmHg Mitral Valve MV E Max Endy. 59.00 (40-130 cm/s) MV A Velocity 91.00 (40-130 cm/s) E/A Ratio 0.65 MV Decel. Time 150.00 (160-240 ms) MV PHT 44.00 ms Pulmonary Valve PV Peak Velocity 127.00 (50-150 cm/s) Tricuspid Valve TR P. Velocity 268.00 cm/s RAP Estimate 10.00 mmHg RVSP 38.80 mmHg Left Ventricle Left atrium is mildly enlarged, left ventricle is normal size, mild concentric left ventricular hypertrophy, visually estimated ejection fraction 50% with no obvious regional wall motion abnormality, grade 1 diastolic dysfunction seen without tissue Doppler evidence of raise left atrial pressure. Right Ventricle Right atrium and right ventricle mildly enlarged with normal contractility. Aortic Valve Aortic valve is minimally thickened and fibrosed, there is no aortic stenosis or aortic insufficiency. Mitral Valve Mitral valve is grossly normal, there is trace mitral regurgitation. Tricuspid Valve Tricuspid grossly normal, there is trace tricuspid regurgitation, tricuspid regurgitation jet velocity is inadequate for calculation of the right ventricular systolic pressure. Pulmonic Valve Pulmonic valve is poorly visualized. Great Vessels Aortic root is normal size. Inferior vena cava normal size with normal inspiratory collapse. Pericardium No significant pericardial effusion noted. Conclusion 1. Mild biatrial enlargement, normal left ventricular size, mild concentric left ventricular hypertrophy, visually estimated ejection fraction 50% with no obvious regional wall motion abnormality, grade 1 diastolic dysfunction seen without tissue Doppler evidence of raise left atrial pressure. 2. Mildly enlarged right ventricle with normal contractility. 3. Trace mitral and tricuspid regurgitation. 4. No significant pericardial effusion noted. 5. Inferior vena cava is normal size with normal inspiratory collapse. Electronically signed by : Frank Abdullahi MD 02/23/2021 16:33:34
[2021-02-22 08:01] LABS: Potassium 5.2 mmoL/L (3.5-5.1)
[2021-02-22 08:03] LABS: Basophils % 0.1 % (0.1-2.0); Blood Urea Nitrogen 42 mg/dl (9-20); Creatinine Clearance Estimated 79 mL/min (50-200); Eosinophils # 0.2 K/mm3 (0.0-0.4); Eosinophils % 0.6 % (0.1-12.0); Estimated Glomerular Filt Rate 67 ml/min (>60); GFR (African American) 81 ML/MIN (>60); Hematocrit 36.2 % (42.0-52.0); Hemoglobin 11.8 g/dL (14.1-18.0); Lymphocytes # 1.5 K/mm3 (0.7-4.5); Lymphocytes % 5.1 % (10-50); Mean Corpuscular HGB Conc 32.6 g/dL (31.8-35.4); Mean Corpuscular Hemoglobin 30.5 pg (27.0-31.2); Mean Corpuscular Volume 93.4 fl (80-94); Mean Platelet Volume 8.3 fl (7.4-10.4); Monocytes # 1.2 K/mm3 (0.1-1.0); Monocytes % 3.9 % (1.7-9.3); Neutrophils # 26.6 K/mm3 (1.8-7.8); Neutrophils % 90.3 % (37.0-80.0); Platelet Count 401 K/mm3 (142-424); Red Blood Count 3.88 M/mm3 (4.60-6.20); Red Cell Distribution Width 14.4 % (11.5-17.5); White Blood Count 29.5 K/mm3 (4.8-10.8)
[2021-02-22 08:04] LABS: Anion Gap 11.2 mEq/L (5-15); Calcium 8.3 mg/dl (8.4-10.2); Carbon Dioxide 27 mmol/L (22.0-30.0); Glucose 135 mg/dl (74-100)
[2021-02-22 08:14] LABS: Troponin I < 0.01 ng/ml (0.00-0.034)
--- NOTE | 2021-02-22 08:40 | HMH.CNCARD ---
History of Present Illness Consult date: 02/22/21 Requesting physician: Jordan Schmidt Consult reason: chest pain, shortness of breath Chief complaint: Chest pain History of present illness: 65-year-old male admitted to [facility] on 02/20/2021 for COPD exacerbation. Patient is noted to have COPD. Patient states for the past month he has been having progressively shortness of breath despite being on inhalers. Patient states on occasion he will have some mid sternal chest pain that seems to occur when he is having trouble breathing. Patient is on supplemental oxygen at this time. Patient states he has been having a thick productive cough for the past 2 to 3 weeks. States he had been having fever and chills. Patient complains of midsternal chest pain especially when taking a deep breath. Patient states his shortness of breath has improved slightly. No lower extremity edema noted. Patient does complain of palpitations. Patient states at times he feels that his heart is racing. Patient states he does have a loop recorder in in which it was placed prior to 2014. He states the loop recorder was placed due to rapid heart rate. Patient states once he was started on metoprolol, his palpitations have improved. 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 in 2014, patient states he did have an [place] in which he had to undergo CABG. Patient states he is unsure of how many vessels. Patient states he has not followed up with cardiology since being released after his CABG. Patient does have history of congestive heart failure. History of hyperlipidemia in which he is on a statin. Patient smokes 1 pack of cigarettes per day. Patient states he is more concerned about his right shoulder pain and is wanting to have a MRI performed on that. Patient states he is unable to have an MRI due to loop recorder placement. End of life is noted on the loop recorder. Pain management is being managed by PCP. Initial EKG was performed which revealed a normal sinus rhythm with nonspecific ST and T wave abnormalities heart rate noted to be 100 bpm. Chest x-ray revealed no acute intrathoracic disease. Renal function stable. Managed by PCP. Serial troponins were drawn which were negative x2. [facility] [place] History I have reviewed the patient's past medical history: Yes Medical History: Reports:: Anxiety, Congestive Heart Failure, Chronic Obstructive Pulmonary Disease (COPD), Diabetes Mellitus Type 2, Hyperlipidemia, Hypertension, Peripheral Artery Disease *Have you ever received a pneumonia vaccine?: No *Have you received a flu vaccine this season?: No Laterality Cases: Right: Arthroscopy Knee, Arthroscopy Shoulder Other Surgeries: Yes: Appendectomy, CABG, Cardiac Surgery, Cholecystectomy, Colonoscopy Amputation: No Fractures: No - *Social History Last grade of school completed: High school graduate Smoking Status: Former smoker Tobacco Type: cigarettes # Packs/Day (cigarettes): 1 #Yrs smoked (if former smoker): 47 Alcohol Intake: never Substance Use Type: denies use *Occupational Status:: disabled Housing: house *Travel in the last 8 weeks: None - Psychiatric History Pschychiatric History:: Reports:: Anxiety Family Hx:: Cancer, Heart Attack, Hypertension, Coronary Artery Disease, Hyperlipidemia Meds Home Medications Medication Instructions Recorded Confirmed Type ipratropium 0.5 mg-albuterol 3 mg 3 ml INHALATION Q6H ml 11/03/17 02/20/21 History (2.5 mg base)/3 mL nebulization soln albuterol sulfate 90 mcg/actuation 2 puff INHALATION Q6H PRN #18 g 07/01/19 02/20/21 Rx aerosol inhaler albuterol sulfate 2.5 mg/0.5 mL 5 mg INHALATION QID PRN #30 each 11/16/19 02/20/21 Rx solution for nebulization Atorvastatin Calcium [Lipitor 40mg 40 mg PO QHS 02/20/21 02/20/21 History Tab] Fluticasone/Umeclidin/Vilanter 1 inh INHALATION DAILY 02/20/21 02/20/21 History [Trelegy Ellipta] Gabapentin 800 mg PO B
--- NOTE | 2021-02-22 09:14 | HMH.ACPN2 ---
Internal Medicine - PN: Subj *Date: 02/22/21 *Time: 09:14 Interval history: 65-year-old male patient sitting up in bed oxygen saturations 94% on 2 L per nasal cannula. He denies any shortness of breath during the night, still reports midsternal chest pain radiating to the back rates 7 out of 10. He reports he has had this chest pain for the last 2 to 3 months. Cardiology following. Still voices complaints over right shoulder and needing hardware replaced due to recall, instructed patient this will be handled as an outpatient, he verbalizes understanding and agrees. He does report chest pain is controlled with pain medicines. His white count is elevated today and believed to be due to steroids Exam Vital signs and Labs for Last 24 Hours: Temp Pulse Resp BP Pulse Ox 98.5 F 90 18 129/74 98 02/22/21 04:26 02/22/21 07:02 02/22/21 04:26 02/22/21 04:26 02/22/21 06:30 Laboratory Results - last 24 hr 02/21/21 08:34: WBC 24.8 H* D, RBC 4.59 L, Hgb 13.9 L, Hct 42.8, MCV 93.3, MCH 30.3, MCHC 32.5, RDW 14.2, Plt Count 449 H, MPV 9.1, Neut % (Auto) 92.8 H, Lymph % (Auto) 4.5 L, [place] % (Auto) 2.2, Eos % (Auto) 0.4, Baso % (Auto) 0.1, Neut # (Auto) 23.0 H, Lymph # (Auto) 1.1, [place] # (Auto) 0.6, Eos # (Auto) 0.1, Baso # (Auto) 0.0, Total Counted 100, Neutrophils % (Manual) 92 H, Band Neutrophils % 1.0, Lymphocytes % (Manual) 5 L, Monocytes % (Manual) 2, Platelet Estimate Marked increase, RBC Morphology Normal 02/21/21 08:34: PT 11.4, INR 1.01 02/21/21 08:34: LDL Cholesterol Direct 72.18 L 02/22/21 02:45: Troponin I < 0.01 02/22/21 02:45: WBC 26.9 H*, RBC 3.93 L, Hgb 11.8 L D, Hct 35.4 L, MCV 90.1, MCH 30.1, MCHC 33.4, RDW 14.3, Plt Count 394, MPV 7.8, Neut % (Auto) 93.2 H, Lymph % (Auto) 3.7 L, [place] % (Auto) 2.6, Eos % (Auto) 0.1, Baso % (Auto) 0.4, Neut # (Auto) 25.0 H, Lymph # (Auto) 1.0, [place] # (Auto) 0.7, Eos # (Auto) 0.0, Baso # (Auto) 0.1, Total Counted 100, Neutrophils % (Manual) 92 H, Lymphocytes % (Manual) 8 L, Platelet Estimate Normal, RBC Morphology Normal 02/22/21 02:45: Sodium 135 L, Potassium 5.2 H, Chloride 98, Carbon Dioxide 32 H, Anion Gap 10.2, BUN 39 H D, Creatinine 1.30 H D, Estimated Creat Clear 62, Estimated GFR 55 L, Est GFR ( Amer) 67 D, Glucose 152 H D, Calcium 8.4 02/22/21 07:42: WBC 29.5 H*, RBC 3.88 L, Hgb 11.8 L, Hct 36.2 L, MCV 93.4, MCH 30.5, MCHC 32.6, RDW 14.4, Plt Count 401, MPV 8.3, Neut % (Auto) 90.3 H, Lymph % (Auto) 5.1 L, [place] % (Auto) 3.9, Eos % (Auto) 0.6, Baso % (Auto) 0.1, Neut # (Auto) 26.6 H, Lymph # (Auto) 1.5, [place] # (Auto) 1.2 H, Eos # (Auto) 0.2, Baso # (Auto) 0.0 02/22/21 07:42: Sodium 136, Potassium 5.2 H, Chloride 103, Carbon Dioxide 27, Anion Gap 11.2, BUN 42 H, Creatinine 1.10, Estimated Creat Clear 79, Estimated GFR 67, Est GFR ( Amer) 81 D, Glucose 135 H, Calcium 8.3 L 02/22/21 07:42: Troponin I < 0.01 I & O for Last 24 hours: Intake & Output 02/19/21 02/20/21 02/21/21 02/22/21 23:59 23:59 23:59 23:59 Intake Total 480 / 480 1200 / 1200 480 / 480 Balance 480 / 480 1200 / 1200 480 / 480 Weight 172 lb 1 oz 170 lb 15.989 oz 183 lb 12.8 oz Microbiology Reports for the Last 24 Hours: Microbiology 02/21/21 14:00 Sputum - Expectorated Sputum Gram Stain - Final - Constitutional no acute distress, chronically ill appearing - *Routine HEENT Exam Head: Present: normocephalic Eye: Present: EOMI ENT: Present: mucous membranes moist - *Routine Neck Exam Present: trachea midline. Absent: tracheal deviation - *Routine Respiratory Exam Present: rhonchi, wheezes. Absent: accessory muscle use - *Routine Cardiovascular Exam Present: RRR - *Routine Abdominal Exam Present: soft, normoactive bowel sounds. Absent: tenderness, firm - *Routine Extremities Exam Present: full ROM, pulses intact. Absent: cyanosis, clubbing - *Routine Skin Exam Present: intact, dry. Absent: cyanosis, erythema - *Routine Neurological Exam Present: alert, oriented X3,
[2021-02-22 11:18] LABS: Troponin I < 0.01 ng/ml (0.00-0.034)
--- NOTE | 2021-02-22 11:34 | PC.NURSE ---
Received call from Anais AbadRN @ this time, states they will be doing pt's heart cath tomorrow morning.
--- NOTE | 2021-02-22 14:15 | P.PN_ITS ---
Internal Medicine - PN: Subj *Date: 02/22/21 *Time: 14:15 Interval history: No acute respiratory events overnight. Patient admits continued improvement in his symptoms. Exam - Constitutional Constitutional:: Present: no acute distress, comfortable - HENMT Exam HENMT: Present: normocephalic, atraumatic - Eye Exam Eyes:: Present: normal appearance both eyes and related structures - Neck Exam Neck:: Present: normal visual inspection - Respiratory Exam Respiratory:: Present: able to speak in complete sentences, no respiratory distress, wheezing - Cardiovascular Exam Cardiac:: Present: S1, S2 - GI Exam GI:: Present: soft - Skin Exam Skin: Present: warm - Neurological Exam Neurological: Present: alert, awake, normal cognition - Extremities Exam Extremities: Present: no cyanosis, no clubbing, no edema - Psychiatric Exam Psychiatric: Present: normal affect Assessment and Plan (1) Acute exacerbation of chronic obstructive pulmonary disease (COPD) Status: Acute Category: Medical Code(s): J44.1 - Chronic obstructive pulmonary disease with (acute) exacerbation (2) SIRS (systemic inflammatory response syndrome) Status: Acute Category: Medical Code(s): R65.10 - Systemic inflammatory response syndrome (SIRS) of non-infectious origin without acute organ dysfunction (3) Hypertension Status: Chronic Qualifiers: Hypertension type: primary hypertension Qualified Code(s): I10 - Essential (primary) hypertension Category: Medical Code(s): I10 - Essential (primary) hypertension (4) Chronic pain Status: Chronic Qualifiers: Chronic pain type: chronic pain syndrome Qualified Code(s): G89.4 - Chronic pain syndrome Category: Medical Code(s): G89.29 - Other chronic pain (5) Chest pain Status: Acute Category: Medical Code(s): R07.9 - Chest pain, unspecified - Assessment and plan all Dx Assessment and Plan for all problems:: #COPD exacerbation: 65-year-old history of COPD on triple inhaler therapy presented hospital with worsening respiratory distress. Chest x-ray did not show any acute pulmonary infiltrates. Troponins on admission within normal limits. Auscultation bilateral diffuse expiratory wheezing. Patient predominant complaint include difficulty breathing along with cough with productive phlegm. Patient on admission was initiated on methylprednisolone along with ceftriaxone and azithromycin nebulization therapies. Patient admits continued improvement in his symptoms he continued to remain on room air. Auscultation significantly improved. Plan: Continue DuoNebs every 6 hours scheduled along with budesonide every 12 scheduled Change methylprednisolone to prednisone 40 mg daily for a total of 5 days per Change antibiotics to levofloxacin. Follow with final sputum cultures #Thank you for involving pulmonary in this patient care. We will continue to fo selene.
--- NOTE | 2021-02-22 15:48 | PC.NURSE ---
Pt has been on room air for majority of shift, will occasionally put nasal cannula on after returning to bed after ambulation for a few minutes, but has not required O2 d/t desatting. Lungs w/ scat wheezing. No complaints of chest pain. Has been medicated w/ scheduled pain meds for chronic neck/shoulder pain. Is independent w/ ADL's. Ambulates in room w/o safety concerns. He has rested at intervals. Consent signed/on chart for card cath scheduled for tomorrow. Call prudencio w/in reach. No needs voiced.
[2021-02-23] VITALS (22 sets, daily range): BP systolic 107–147; BP diastolic 55–76; PULSE 70–93; RESP 16–18; TEMP 36.4–36.6; O2SAT 92–96; BMI 27.8
--- NOTE | 2021-02-23 | IR_ITS ---
APPROVED REPORT Patient Location: Inpatient PROCEDURES Left heart catheterization Left ventriculogram Selective coronary angiogram Selective engage left internal mammary artery with angiography INDICATION Coronary artery disease, Elevated troponin, History of coronary artery bypass surgery Informed consent was obtained prior to the procedure. COMPLICATIONS none Estimated Blood Loss: Less than 10 mls TECHNIQUE One percent lidocaine used to anesthetize the right groin. The right femoral artery was accessed via the Seldinger technique and a 5 Lebanese sheath was placed in the right femoral artery. A JL 4, JR4 catheter were used to perform left heart catheterization, left ventriculogram selective coronary angiography as well as selective engagement of the left internal mammary artery. At the end of the procedure the patient was transferred to the postop holding area in stable condition for sheath removal. ANGIOGRAPHIC RESULTS The left main artery Normal The left anterior descending artery Is ostially occluded. The circumflex artery The distal left main artery gives rise to a large ramus intermedius which has mild luminal irregularities as well as a nondominant circumflex artery which has 20% stenosis in the first obtuse marginal artery The right coronary artery Is dominant and has a proximal eccentric 20 to 30% stenosis The ROBERTS ventriculogram reveals Dilated ejection fraction of 40 to 45% The left ventricular end-diastolic pressure Severely elevated at 35 mmHg Left internal mammary artery is widely patent to an LAD IMPRESSION Adequate coronary revascularization as described above Dilated ventricle with reduced ejection fraction Persistently severely elevated LVEDP PLAN 1. Medical management for coronary disease 2. Patient requires significant Lasix in order to decrease LVEDP which will significantly improve dyspnea. Patient COPD exacerbation is more than likely the result of decompensated congestive heart failure 3. Continue standard therapy for ischemic heart disease 4. Entresto plus carvedilol Electronically signed by : Eloy Thornton MD 02/23/2021 12:16:25
--- NOTE | 2021-02-23 05:20 | PC.NURSE ---
No acute changes. No c/o chest pain voiced to staff thus far. Pt has been bathed and clipped in prep for heart cath.
--- NOTE | 2021-02-23 06:21 | PC.NURSE ---
Pt Wallet and bracelet locked in drawer per pt request at this time.
[2021-02-23 06:25] LABS: Basophils # 0.1 K/mm3 (0-0.2); Basophils % 0.4 % (0.1-2.0); Eosinophils # 0.3 K/mm3 (0.0-0.4); Eosinophils % 1.1 % (0.1-12.0); Hematocrit 39.1 % (42.0-52.0); Hemoglobin 12.5 g/dL (14.1-18.0); Mean Corpuscular HGB Conc 31.9 g/dL (31.8-35.4); Mean Corpuscular Hemoglobin 30.5 pg (27.0-31.2); Mean Corpuscular Volume 95.7 fl (80-94); Mean Platelet Volume 8.6 fl (7.4-10.4); Monocytes # 1.5 K/mm3 (0.1-1.0); Monocytes % 5.5 % (1.7-9.3); Neutrophils # 20.7 K/mm3 (1.8-7.8); Platelet Count 441 K/mm3 (142-424); Red Blood Count 4.08 M/mm3 (4.60-6.20); Red Cell Distribution Width 14.5 % (11.5-17.5); White Blood Count 26.6 K/mm3 (4.8-10.8)
[2021-02-23 06:39] LABS: MANUAL DIFFERENTIAL MANUAL DIFFERENTIAL (MANUAL DIFF)
[2021-02-23 07:09] LABS: Chloride 102 mmol/L (98-107); Potassium 4.6 mmoL/L (3.5-5.1); Sodium 138 mmol/L (136-145)
[2021-02-23 07:12] LABS: Blood Urea Nitrogen 30 mg/dl (9-20); Carbon Dioxide 29 mmol/L (22.0-30.0); Creatinine Clearance Estimated 72 mL/min (50-200); Estimated Glomerular Filt Rate 61 ml/min (>60); GFR (African American) 74 ML/MIN (>60)
[2021-02-23 07:13] LABS: Glucose 106 mg/dl (74-100)
[2021-02-23 08:14] LABS: Eosinophils % 1 % (0-3); Lymphocytes % 15 % (10-50); Monocytes % 8 % (2-9); Neutrophils % 76 % (42-76); Platelet Estimate Slight Increase; RBC Morphology Normal; Total Cells Counted 100
--- NOTE | 2021-02-23 08:59 | HMH.ACPN2 ---
Internal Medicine - PN: Subj *Date: 02/23/21 *Time: 08:00 Interval history: pt states he is feeling better Exam Vital signs and Labs for Last 24 Hours: Temp Pulse Resp BP Pulse Ox 97.5 F L 90 16 133/57 L 92 L 02/23/21 04:00 02/23/21 06:06 02/23/21 04:00 02/23/21 04:00 02/23/21 06:06 Laboratory Results - last 24 hr 02/22/21 10:40: Troponin I < 0.01 02/23/21 06:01: WBC 26.6 H*, RBC 4.08 L, Hgb 12.5 L, Hct 39.1 L, MCV 95.7 H, MCH 30.5, MCHC 31.9, RDW 14.5, Plt Count 441 H, MPV 8.6, Neut % (Auto) 78.0, Lymph % (Auto) 15.0, [place] % (Auto) 5.5, Eos % (Auto) 1.1, Baso % (Auto) 0.4, Neut # (Auto) 20.7 H, Lymph # (Auto) 4.0, [place] # (Auto) 1.5 H, Eos # (Auto) 0.3, Baso # (Auto) 0.1, Total Counted 100, Neutrophils % (Manual) 76, Lymphocytes % (Manual) 15, Monocytes % (Manual) 8, Eosinophils % (Manual) 1, Platelet Estimate Slight increase, RBC Morphology Normal 02/23/21 06:01: Sodium 138, Potassium 4.6, Chloride 102, Carbon Dioxide 29, BUN 30 H D, Creatinine 1.20, Estimated Creat Clear 72, Estimated GFR 61, Est GFR ( Amer) 74, Glucose 106 H D, Calcium 8.0 L I & O for Last 24 hours: Intake & Output 02/20/21 02/21/21 02/22/21 02/23/21 11:59 11:59 11:59 11:59 Intake Total 960 / 960 1200 / 1200 600 / 600 Balance 960 / 960 1200 / 1200 600 / 600 Weight 171 lb 183 lb 12.8 oz 183 lb 11.2 oz Microbiology Reports for the Last 24 Hours: Microbiology 02/20/21 12:45 Blood Blood Culture - Preliminary NO GROWTH AFTER 48 HOURS 11/30/21 12:45 Blood Blood Culture - Preliminary NO GROWTH AFTER 48 HOURS - Constitutional no acute distress - *Routine HEENT Exam Head: Present: normocephalic Eye: Present: PERRL ENT: Present: mucous membranes moist - *Routine Neck Exam Present: supple. Absent: lymphadenopathy - *Routine Respiratory Exam Present: wheezes - *Routine Cardiovascular Exam Present: RRR - *Routine Abdominal Exam Present: soft, normoactive bowel sounds. Absent: tenderness - *Routine Extremities Exam Present: normal capillary refill. Absent: cyanosis, clubbing, edema - *Routine Skin Exam Present: warm. Absent: rash - *Routine Neurological Exam Present: alert, oriented X3 Assessment and Plan (1) Acute exacerbation of chronic obstructive pulmonary disease (COPD) Status: Acute Category: Medical Code(s): J44.1 - Chronic obstructive pulmonary disease with (acute) exacerbation (2) SIRS (systemic inflammatory response syndrome) Status: Acute Category: Medical Code(s): R65.10 - Systemic inflammatory response syndrome (SIRS) of non-infectious origin without acute organ dysfunction (3) Hypertension Status: Chronic Qualifiers: Hypertension type: primary hypertension Qualified Code(s): I10 - Essential (primary) hypertension Category: Medical Code(s): I10 - Essential (primary) hypertension (4) Chronic pain Status: Chronic Qualifiers: Chronic pain type: chronic pain syndrome Qualified Code(s): G89.4 - Chronic pain syndrome Category: Medical Code(s): G89.29 - Other chronic pain (5) Chest pain Status: Acute Category: Medical Code(s): R07.9 - Chest pain, unspecified - Assessment and plan all Dx Assessment and Plan for all problems:: rounded with dr nascimento all orders per dr nascimento heart cath today
--- NOTE | 2021-02-23 09:43 | HMH.PNCARD ---
Subjective Date: 02/23/21 Time: 09:00 Principal diagnosis: angina Interval history: This is a 65-year-old white gentleman who was admitted to [facility] for COPD exacerbation. The patient states that he had been progressively worse with his shortness of breath prior to coming into the hospital for approximately 1 month. He is also having midsternal chest pain that he describes as a sharp pressure sensation. He states that this is associated with shortness of breath. He states that it is radiating to his left arm and causing numbness. And at times it is also associated with feelings that his heart is racing. He was started on metoprolol with improvement in his palpitations. He states that he is having some mild chest pressure this morning. At its worst it is severe. He continues to smoke 1 pack of cigarettes per day. 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 His loop recorder is currently at end-of-life. The patient is scheduled to undergo left cardiac catheterization this morning. Exam Vital signs and Labs for Last 24 Hours: Temp Pulse Resp BP Pulse Ox 97.5 F L 90 16 133/57 L 92 L 02/23/21 04:00 02/23/21 06:06 02/23/21 04:00 02/23/21 04:00 02/23/21 06:06 Laboratory Results - last 24 hr 02/22/21 10:40: Troponin I < 0.01 02/23/21 06:01: WBC 26.6 H*, RBC 4.08 L, Hgb 12.5 L, Hct 39.1 L, MCV 95.7 H, MCH 30.5, MCHC 31.9, RDW 14.5, Plt Count 441 H, MPV 8.6, Neut % (Auto) 78.0, Lymph % (Auto) 15.0, [place] % (Auto) 5.5, Eos % (Auto) 1.1, Baso % (Auto) 0.4, Neut # (Auto) 20.7 H, Lymph # (Auto) 4.0, [place] # (Auto) 1.5 H, Eos # (Auto) 0.3, Baso # (Auto) 0.1, Total Counted 100, Neutrophils % (Manual) 76, Lymphocytes % (Manual) 15, Monocytes % (Manual) 8, Eosinophils % (Manual) 1, Platelet Estimate Slight increase, RBC Morphology Normal 02/23/21 06:01: Sodium 138, Potassium 4.6, Chloride 102, Carbon Dioxide 29, BUN 30 H D, Creatinine 1.20, Estimated Creat Clear 72, Estimated GFR 61, Est GFR ( Amer) 74, Glucose 106 H D, Calcium 8.0 L I & O for Last 24 hours: Intake & Output 02/20/21 02/21/21 02/22/21 02/23/21 23:59 23:59 23:59 23:59 Intake Total 480 / 480 1200 / 1200 1080 / 1080 Balance 480 / 480 1200 / 1200 1080 / 1080 Weight 172 lb 1 oz 170 lb 15.989 oz 183 lb 12.8 oz 183 lb 11.2 oz Microbiology Reports for the Last 24 Hours: Microbiology 02/20/21 12:45 Blood Blood Culture - Preliminary NO GROWTH AFTER 48 HOURS 02/20/21 12:45 Blood Blood Culture - Preliminary NO GROWTH AFTER 48 HOURS Narrative: Telemetry strip is sinus rhythm. - Constitutional no acute distress, average body habitus - *Routine HEENT Exam Head: Present: normocephalic, atraumatic Eye: Present: EOMI, PERRL ENT: Present: mucous membranes moist - *Routine Neck Exam Present: supple, full ROM, normal carotid upstroke. Absent: JVD, carotid bruit, lymphadenopathy - *Routine Respiratory Exam Present: decreased breath sounds, wheezes - *Routine Cardiovascular Exam Present: RRR, Normal S1, Normal S2. Absent: murmur - *Routine Abdominal Exam Present: soft, normoactive bowel sounds. Absent: tenderness, distended - *Routine Extremities Exam Present: full ROM, pulses intact, normal capillary refill. Absent: cyanosis, clubbing, edema - *Routine Skin Exam Present: intact, warm. Absent: erythema, rash - *Routine Neurological Exam Present: alert, oriented X3, CN II-XII intact. Absent: sensory deficit, motor deficit Progress Note: A&P (1) Angina pectoris Status: Acute (2) CAD (coronary artery disease) Status: Chronic (3) Acute exacerbation of chronic obstructive pulmonary disease (COPD) Status: Acute (4) SIRS (systemic inflammatory response syndrome) Status: Acute (5) Hypertension Status: Chronic (6) Chronic pain Status: Chronic (7) Hx of CABG Status: Acute (8) HLD (
--- NOTE | 2021-02-23 10:57 | HMH.PULMPN ---
Internal Medicine - PN: Subj *Date: 02/23/21 *Time: 10:57 Interval history: No acute respiratory vents overnight. Patient admits continued improvement in his symptoms. Exam - Constitutional Constitutional:: Present: no acute distress, comfortable - HENMT Exam HENMT: Present: normocephalic, atraumatic - Eye Exam Eyes:: Present: normal appearance both eyes and related structures - Neck Exam Neck:: Present: normal visual inspection - Respiratory Exam Respiratory:: Present: able to speak in complete sentences, no respiratory distress, normal respiratory effort, wheezing - Cardiovascular Exam Cardiac:: Present: S1, S2 - GI Exam GI:: Present: soft - Skin Exam Skin: Present: warm, no rash - Neurological Exam Neurological: Present: alert, awake, normal cognition - Extremities Exam Extremities: Present: no cyanosis, no clubbing, no edema Assessment and Plan (1) Angina pectoris Status: Acute Category: Medical Code(s): I20.9 - Angina pectoris, unspecified (2) CAD (coronary artery disease) Status: Chronic Category: Medical Code(s): I25.10 - Atherosclerotic heart disease of [place] coronary artery without angina pectoris (3) Acute exacerbation of chronic obstructive pulmonary disease (COPD) Status: Acute Category: Medical Code(s): J44.1 - Chronic obstructive pulmonary disease with (acute) exacerbation (4) SIRS (systemic inflammatory response syndrome) Status: Acute Category: Medical Code(s): R65.10 - Systemic inflammatory response syndrome (SIRS) of non-infectious origin without acute organ dysfunction (5) Hypertension Status: Chronic Qualifiers: Hypertension type: primary hypertension Qualified Code(s): I10 - Essential (primary) hypertension Category: Medical Code(s): I10 - Essential (primary) hypertension (6) Chronic pain Status: Chronic Qualifiers: Chronic pain type: chronic pain syndrome Qualified Code(s): G89.4 - Chronic pain syndrome Category: Medical Code(s): G89.29 - Other chronic pain (7) Hx of CABG Status: Acute Category: Surgical Code(s): Z95.1 - Presence of aortocoronary bypass graft (8) HLD (hyperlipidemia) Status: Chronic Category: Medical Code(s): E78.5 - Hyperlipidemia, unspecified - Assessment and plan all Dx Assessment and Plan for all problems:: #COPD exacerbation: 65-year-old history of COPD on triple inhaler therapy presented hospital with worsening respiratory distress. Chest x-ray did not show any acute pulmonary infiltrates. Troponins on admission within normal limits. Auscultation bilateral diffuse expiratory wheezing. Patient predominant complaint include difficulty breathing along with cough with productive phlegm. Patient on admission was initiated on methylprednisolone along with ceftriaxone and azithromycin nebulization therapies. Patient admits continued improvement in his symptoms he continued to remain on room air. Auscultation significantly improved with only minimal wheezing. Steroids were weaned to prednisone 40 mg daily along with antibiotics levofloxacin but he continued to have leukocytosis. Chest x-ray did not show any acute pulmonary infiltrates. Patient is scheduled for left heart cath secondary to his atypical chest pain today. Plan: Continue DuoNebs every 6 hours scheduled along with budesonide every 12 scheduled Prednisone 40 mg daily for a total of 5 days per Levofloxacin 750 mg daily to complete a total of 5-day course follow with final sputum cultures. Sputum showing gram-positive cocci, final cultures pending. Blood cultures no growth 48 hours. #Thank you for involving pulmonary in this patient care. We will follow the patient in 4 to 6 weeks with a full PFT and a 6-minute walk testing.
[2021-02-23 14:51] LABS: Anion Gap 11.6 mEq/L (5-15)
--- NOTE | 2021-02-23 16:25 | DIET.NUTRFU ---
Pt with heart cath today. Glucose 152, 135, 106. PO intake excellent with >75% at most meals. Will follow up to offer nutrition education and continue to monitor.
--- NOTE | 2021-02-23 18:01 | PC.NURSE ---
Patient is NSR on the monitor and on room air, using 2L PRN. Patient is up ad-wilson. Patient went for heart cath, no interventions done. Right groin site, clean, dry, and intact. Patient post op vitals documented. Patient has voided. Plan of care, patient to DC to home tomorrow. Bed in lowest position and phone and call light in reach. Will continue to monitor.
[2021-02-24] VITALS: BP 115/63; PULSE 80; PULSE 95; RESP 17; TEMP 37.3; O2SAT 94
[2021-02-24 04:00] VITALS: BP 107/49; PULSE 87; PULSE 90; RESP 18; TEMP 36.8; O2SAT 93
[2021-02-24 04:20] VITALS: BMI 28.1
[2021-02-24 06:15] VITALS: PULSE 85; O2SAT 95
[2021-02-24 08:00] VITALS: BP 131/71; PULSE 84; RESP 18; TEMP 36.8; O2SAT 94
[2021-02-24 08:44] LABS: Chloride 101 mmol/L (98-107); Sodium 136 mmol/L (136-145)
[2021-02-24 08:45] LABS: Potassium 4.4 mmoL/L (3.5-5.1)
[2021-02-24 08:48] LABS: Anion Gap 11.4 mEq/L (5-15); Blood Urea Nitrogen 28 mg/dl (9-20); Calcium 7.9 mg/dl (8.4-10.2); Carbon Dioxide 28 mmol/L (22.0-30.0); Creatinine Clearance Estimated 68 mL/min (50-200); Estimated Glomerular Filt Rate 55 ml/min (>60); GFR (African American) 67 ML/MIN (>60); Glucose 129 mg/dl (74-100)
[2021-02-24 08:59] LABS: NT Pro Brain Natriuretic Pep. 835 pg/mL (0-125)
[2021-02-24 09:31] LABS: Basophils # 0.1 K/mm3 (0-0.2); Basophils % 0.5 % (0.1-2.0); Eosinophils # 0.1 K/mm3 (0.0-0.4); Eosinophils % 0.4 % (0.1-12.0); Hematocrit 40.3 % (42.0-52.0); Hemoglobin 12.3 g/dL (14.1-18.0); Lymphocytes % 17.6 % (10-50); Mean Corpuscular HGB Conc 30.4 g/dL (31.8-35.4); Mean Corpuscular Hemoglobin 29.6 pg (27.0-31.2); Mean Corpuscular Volume 97.1 fl (80-94); Mean Platelet Volume 8.2 fl (7.4-10.4); Monocytes % 8.8 % (1.7-9.3); Neutrophils # 16.4 K/mm3 (1.8-7.8); Neutrophils % 72.7 % (37.0-80.0); Platelet Count 426 K/mm3 (142-424); Red Blood Count 4.15 M/mm3 (4.60-6.20); White Blood Count 22.5 K/mm3 (4.8-10.8)
[2021-02-24 09:37] LABS: MANUAL DIFFERENTIAL MANUAL DIFFERENTIAL (MANUAL DIFF)
--- NOTE | 2021-02-24 09:59 | HMH.DCSUM ---
General - General Admission date:: 02/20/21 Discharge date: 02/24/21 HPI HPI: this patient presented to pcp office with progressive sob-pt was sent to the ed- 65-year-old male with past medical history of COPD and hypertension who presents to the emergency department with chief complaint of shortness of breath. Patient states that has been experiencing worsening shortness of breath for the last month despite being on his home inhalers. Patient saw Dr. Schmidt in clinic today, and was told to come to the emergency department to be admitted to the hospital. On arrival, patient is 88% O2 sats on room air, but tachypneic and increased work of breathing. He admits to thick, large amount of sputum production that is foul, fevers or chills. pt was admitted for treatment with ivf and meds and resp treatment Hospital Course Hospital Course: pt was admitted with ivf and steroids and abx with resp treatments and slowly responded - he was seen by pul -s. Nick is a 65-year-old male history of COPD on triple inhaler therapy at home not on any oxygen therapy, CAD status post CABG in 2014 presented to the hospital worsening respiratory distress cough and productive phlegm and pulmonary was called for further management. 5-year-old history of COPD on triple inhaler therapy presented hospital with worsening respiratory distress. Chest x-ray did not show any acute pulmonary infiltrates. Troponins on admission within normal limits. Auscultation bilateral diffuse expiratory wheezing. Patient predominant complaint include difficulty breathing along with cough with productive phlegm. Patient on admission was initiated on methylprednisolone along with ceftriaxone and azithromycin nebulization therapies. Patient admits slight improvement in his symptoms since admission. He was saturating 95% on room air this morning. Plan: Continue DuoNebs every 6 hours scheduled along with budesonide every 12 scheduled. Continue methylprednisolone 40 mg every 8 hours. Continue ceftriaxone azithromycin. Follow with sputum culture with induction. pt slowly improved but had episodes of chest pain and was seen by card --year-old male admitted to [facility] on 02/20/2021 for COPD exacerbation. Patient is noted to have COPD. Patient states for the past month he has been having progressively shortness of breath despite being on inhalers. Patient states on occasion he will have some mid sternal chest pain that seems to occur when he is having trouble breathing. Patient is on supplemental oxygen at this time. Patient states he has been having a thick productive cough for the past 2 to 3 weeks. States he had been having fever and chills. Patient complains of midsternal chest pain especially when taking a deep breath. Patient states his shortness of breath has improved slightly. No lower extremity edema noted. Patient does complain of palpitations. Patient states at times he feels that his heart is racing. Patient states he does have a loop recorder in in which it was placed prior to 2014. He states the loop recorder was placed due to rapid heart rate. Patient states once he was started on metoprolol, his palpitations have improved. 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 in 2014, patient states he did have an [place] in which he had to undergo CABG. Patient states he is unsure of how many vessels. Patient states he has not followed up with cardiology since being released after his CABG. Patient does have history of congestive heart failure. History of hyperlipidemia in which he is on a statin. Patient smokes 1 pack of cigarettes per day. Patient states he is more concerned about his right shoulder pain and is wanting to have a MRI performed on that. Patient states he is unable to have an MRI due to loop recorder placement. End of life is noted on the loop recorder. Pain management is being managed by PCP. Initial EKG was performed
[2021-02-24 10:24] LABS: Hypochromasia 1+; Lymphocytes % 14 % (10-50); Macrocytosis 1+; Monocytes % 7 % (2-9); Neutrophils % 79 % (42-76); Platelet Estimate Normal; Total Cells Counted 100
--- NOTE | 2021-02-24 11:18 | PC.NURSE ---
pt has been discahrged from the facility. He voiced understanding of all discahrge education and follow up appts as well as prescription education. IV discontinued. Tele removed.
== END 2021-02-24 11:15 | disposition home or self-care (01) ==
LOC: ER 15:22 → 2ND 15:28
PROVIDERS: Internal Medicine; Nurse Practitioner Family; Admitting Provider Emergency Medicine; Emergency Provider Emergency Medicine; PCP Emergency Medicine; Visit Provider Emergency Medicine
DX: J44.1 Chronic obstructive pulmonary disease with (acute) exacerbation (principal); Z79.51 Long term (current) use of inhaled steroids; Z79.899 Other long term (current) drug therapy; I11.0 Hypertensive heart disease with heart failure; I50.9 Heart failure, unspecified; E11.9 Type 2 diabetes mellitus without complications; Z95.1 Presence of aortocoronary bypass graft; M50.30 Other cervical disc degeneration, unspecified cervical region; G89.4 Chronic pain syndrome; Z20.822 Contact with and (suspected) exposure to COVID-19; F17.210 Nicotine dependence, cigarettes, uncomplicated; I25.118 Atherosclerotic heart disease of native coronary artery with other forms of angina pectoris
CPT/HCPCS: G0378; 36415; 71045; 80048; 80053; 80061; 82962; 83605; 83735; 83880; 84100; 84484; 85007; 85025; 85610; 87040; 87070; 87205; 93005; 93306; 93459; 94640; 94760; 94761; 96365; 96375; 99152; 99282; C1725; C1769; C1894; C9803; J0456; J1644; J2405; Q9967; U0003; U0005

== ENCOUNTER → 2021-05-23 13:52 | Outpatient (CLI) | payer MEDICARE, MEDICAID, SELFPAY ==
--- NOTE | 2021-05-23 13:58 | XR_ITS ---
FINAL REPORT CLINICAL HISTORY: right shoulder pain FINDINGS: RIGHT SHOULDER: 3 views of the right shoulder were obtained. There is no acute fracture or dislocation. There has been shoulder arthroplasty. There is mild degenerative change involving the AC joint. Postoperative changes are seen in the lower cervical spine. There is no soft tissue abnormality. IMPRESSION: Postoperative and degenerative changes. Reviewed, Interpreted and Dictated by Berto Mathur III, MD Transcribed by Sae Alcazar Authenticated by Berto Mathur III, MD on 05/23/2021 03:39:56 PM [facility]
== END ==
PROVIDERS: PCP Emergency Medicine; Visit Provider Orthopaedic Surgery
DX: M25.511 Pain in right shoulder (principal)
CPT/HCPCS: 73030

== ENCOUNTER 2022-02-20 15:11 | Emergency (ER) | payer MEDICARE, MEDICAID, SELFPAY ==
[2022-02-20 15:12] VITALS: BP 187/100; PULSE 112; RESP 18; TEMP 36.8; O2SAT 97; BMI 28.1
--- NOTE | 2022-02-20 15:35 | ECG_ITS ---
APPROVED REPORT Exam: Resting ECG HR:106 bpm ECG Measurements Heart Rate 106 AXES MD 119 P 83 QRSd 89 QRS 60 QT 307 T 108 QTc 369 Conclusion SINUS TACHYCARDIA WITH SHORT MD INTERVAL POSSIBLE LEFT ATRIAL ENLARGEMENT [-0.1mV P-WAVE IN V1/V2] NONSPECIFIC ST & T-WAVE ABNORMALITY ABNORMAL RHYTHM ECG UNCONFIRMED REPORT Electronically signed by : Franki Young MD 02/21/2022 21:36:08
[2022-02-20 15:58] VITALS: PULSE 112
--- NOTE | 2022-02-20 15:59 | XR_ITS ---
FINAL REPORT CLINICAL HISTORY: CP, SOA, CONGESTION, COUGH, FEVER, BODY ACHES, CHEST TIGHNESS X DAYS. HX COPD, SMOKER. FINDINGS: Two views of the chest were obtained. Mild cardiomegaly is noted. There has been prior median sternotomy. The lungs are hyperinflated. No acute pulmonary abnormality is identified. There is no pneumothorax. There is cervical fusion hardware. There is a right shoulder prosthesis. IMPRESSION: No acute cardiopulmonary process. Reviewed, Interpreted and Dictated by Tony Peace MD Transcribed by Sae Alcazar Authenticated and [facility]
[2022-02-20 16:08] LABS: Coronavirus 19, PCR Not Detected (NotDetected); Influenza A, PCR Not Detected (NotDetected); Influenza B, PCR Not Detected (NotDetected)
[2022-02-20 16:10] LABS: Basophils # 0.1 K/mm3 (0-0.2); Basophils % 0.6 % (0.1-2.0); Eosinophils # 0.4 K/mm3 (0.0-0.4); Eosinophils % 2.3 % (0.1-12.0); Hematocrit 39.5 % (42.0-52.0); Lymphocytes % 17.7 % (10-50); Mean Corpuscular HGB Conc 30.4 g/dL (31.8-35.4); Mean Corpuscular Hemoglobin 29.1 pg (27.0-31.2); Mean Corpuscular Volume 95.7 fl (80-94); Mean Platelet Volume 8.6 fl (7.4-10.4); Monocytes # 0.9 K/mm3 (0.1-1.0); Monocytes % 5.1 % (1.7-9.3); Neutrophils # 12.5 K/mm3 (1.8-7.8); Neutrophils % 74.4 % (37.0-80.0); Platelet Count 737 K/mm3 (142-424); Red Blood Count 4.13 M/mm3 (4.60-6.20); Red Cell Distribution Width 15.1 % (11.5-17.5); White Blood Count 16.8 K/mm3 (4.8-10.8)
[2022-02-20 16:12] LABS: MANUAL DIFFERENTIAL MANUAL DIFFERENTIAL (MANUAL DIFF)
[2022-02-20 16:17] LABS: Anion Gap 10.7 mEq/L (5-15); Blood Urea Nitrogen 18 mg/dl (9-20); Calcium 8.9 mg/dl (8.4-10.2); Carbon Dioxide 30 mmol/L (22.0-30.0); Chloride 105 mmol/L (98-107); Creatinine Clearance Estimated 76 mL/min (50-200); Estimated Glomerular Filt Rate 67 ml/min (>60); GFR (African American) 81 ML/MIN (>60); Glucose 111 mg/dl (74-100); Potassium 3.7 mmoL/L (3.5-5.1); Sodium 142 mmol/L (136-145)
[2022-02-20 16:40] LABS: Anisocytosis 1+; Eosinophils % 1 % (0-3); Hypochromasia 1+; Lymphocytes % 12 % (10-50); Monocytes % 9 % (2-9); Neutrophils % 78 % (42-76); Platelet Estimate Normal; Total Cells Counted 100
[2022-02-20 17:12] LABS: Lactic Acid < 0.5 mmol/L (0.7-2.1)
[2022-02-20 17:27] LABS: Troponin I < 0.01 ng/ml (0.00-0.034)
--- NOTE | 2022-02-20 17:34 | HMH.EDGENADL ---
Discharge Plan Disposition Patient Disposition: Home, Self-Care Condition: Fair Prescriptions Prescriptions: New azithromycin [azithromycin] 250 mg tablet 250 mg PO DIRECTED Qty: 6 0RF Rx Instructions: Take two (2) tablets on day #1, then one (1) tablet day #2 thru #5 prednisone [prednisone] 20 mg tablet 20 mg PO BID Qty: 10 0RF cephalexin [cephalexin] 500 mg capsule 500 mg PO TID Qty: 30 0RF No Action gabapentin 800 mg tablet 800 mg PO BID Qty: 60 2RF diazepam 10 mg tablet 10 mg PO BID Qty: 60 2RF albuterol sulfate 2.5 mg/0.5 mL solution for nebulization 5 mg INHALATION QID PRN (Reason: shortness of breath or wheezing) Qty: 30 0RF atorvastatin 40 mg tablet 40 mg PO QHS Qty: 90 0RF lisinopril 10 mg tablet 10 mg PO DAILY Qty: 90 0RF albuterol sulfate 90 mcg/actuation HFA aerosol inhaler See Rx Instructions .ROUTE .COMPLEX Qty: 18 2RF Dose Instruction: INHALE 2 PUFFS EVERY 6 HOURS NEEDED FOR SHORTNESS OF BREATH OR WHEEZING Rx Instructions: INHALE 2 PUFFS EVERY 6 HOURS NEEDED FOR SHORTNESS OF BREATH OR WHEEZING [id number] 100-62.5-25 mcg blister with device 1 inh INHALATION DAILY Qty: 60 2RF metoprolol tartrate 25 mg tablet See Rx Instructions .ROUTE .COMPLEX Qty: 180 1RF Dose Instruction: TAKE 3 TABLETS BY MOUTH TWICE A DAY FOR HIGH BLOOD PRESSURE Rx Instructions: TAKE 3 TABLETS BY MOUTH TWICE A DAY FOR HIGH BLOOD PRESSURE oxycodone 5 MG tablet 15 mg PO QID 0RF Referrals Follow up/Referrals: Jordan Schmidt MD [Primary Care Provider] - See instructions Clinical Impressions Clinical Impression: COPD exacerbation, Acute bronchitis Instructions Patient Instructions: DI for Chronic Obstructive Pulmonary Disease Discharge ED Provider: Jordan Gerard General Adult HPI <Jordan Gerard MD - Last Filed: 02/20/22 20:18> General Chief complaint: Chest Pain Stated complaint: Congestion,soB,Cough,Diarrhea,COPD Time Seen by Provider: 02/20/22 17:35 Mode of Arrival: Ambulatory Source of Information: Patient Limitations: No Limitations Description of Symptoms (Recalled from ER Triage Doc. by RN): c/o soa with cough and yellow mucus and chest pain that started 3 days ago. Sent per for further workup History of Present Illness HPI narrative: States he has been sick for 3 to 4 days with a cough producing yellow and green mucus, increasing shortness of breath and increasing wheezing, diffuse anterior chest pain. He saw Dr. Schmidt in the office today and was sent to the emergency department. He is on oxygen at home, 3 L. He has a nebulizer at home. He took some leftover doxycycline and some leftover prednisone. He states that he finished prednisone 3 days ago. Despite all of this he has not improved. He states he does not feel like he can go home. He is under the impression that Dr. Schmitd sent him here to be admitted. Related Data Previous Rx's Medication Instructions Recorded oxycodone 5 mg tablet 15 mg PO QID 02/24/21 gabapentin 800 mg tablet 800 mg PO BID Pain #60 tabs 05/23/21 albuterol sulfate 2.5 mg/0.5 mL 5 mg inhalation QID PRN shortness 10/24/21 solution for nebulization of breath or wheezing #30 ea diazepam 10 mg tablet 10 mg PO BID #60 tabs 11/21/21 atorvastatin 40 mg tablet 40 mg PO QHS Cholesterol #90 tabs 12/19/21 lisinopril 10 mg tablet 10 mg PO DAILY #90 tabs 12/19/21 albuterol sulfate 90 mcg/actuation See Rx Instructions .Route 01/24/22 aerosol inhaler .COMPLEX #18 ea fluticasone fur. 100 mcg-umeclid 1 inh inhalation DAILY Breathing 01/24/22 62.5 mcg-vilant 25 mcg problems #60 ea inhalat.powder metoprolol tartrate 25 mg tablet See Rx Instructions .Route 02/11/22 .COMPLEX #180 tabs azithromycin 250 mg tablet 250 mg PO DIRECTED #6 tabs 02/21/22 cephalexin 500 mg capsule 500 mg PO TID #30 caps 02/21/22 prednisone 20 mg tablet 20 mg PO BID #10 tabs 02/21/22
--- NOTE | 2022-02-20 18:08 | PC.NURSE ---
resp came down to administer a neb treatment to pt
--- NOTE | 2022-02-20 18:12 | PC.NURSE ---
rounded on pt.pt asked for something to drink Dr, okayed it for pt to have something to drink. went and got the pt a drink
--- NOTE | 2022-02-20 18:15 | PC.NURSE ---
called hospitalist per ER doctor to speak about admitting the pt in this room
--- NOTE | 2022-02-20 18:44 | PC.NURSE ---
PT RESTING IV ATB INFUSING PT O2 SATS ARE 98% ON RA PT HAS BEEN OFF O2 FOR APPROX 45 MINUTES
[2022-02-20 19:00] VITALS: BP 171/91; PULSE 101; O2SAT 94
--- NOTE | 2022-02-20 19:04 | PC.NURSE ---
pt rang out. checked to see what he needed. asked if he could have something to eat. was able to offer him some pnut butter and crackers and was okayed to have a pepsi
[2022-02-20 19:30] VITALS: BP 165/98; PULSE 97; O2SAT 96
[2022-02-20 20:08] LABS: Troponin I < 0.01 ng/ml (0.00-0.034)
[2022-02-20 20:30] VITALS: BP 152/70; PULSE 100; O2SAT 99
[2022-02-20 22:43] LABS: Troponin I < 0.01 ng/ml (0.00-0.034)
[2022-02-21 06:15] VITALS: PULSE 105; PULSE 108
[2022-02-21 07:47] VITALS: BP 173/96; PULSE 110; RESP 18; TEMP 36.6; O2SAT 98
== END 2022-02-21 07:47 | disposition home or self-care (01) ==
PROVIDERS: Emergency Provider Emergency Medicine; PCP Emergency Medicine
DX: J44.1 Chronic obstructive pulmonary disease with (acute) exacerbation; J20.9 Acute bronchitis, unspecified; Z79.899 Other long term (current) drug therapy; Z88.6 Allergy status to analgesic agent; Z72.0 Tobacco use; I25.10 Atherosclerotic heart disease of native coronary artery without angina pectoris; Z95.1 Presence of aortocoronary bypass graft; E78.5 Hyperlipidemia, unspecified; N28.9 Disorder of kidney and ureter, unspecified; E11.9 Type 2 diabetes mellitus without complications; F43.10 Post-traumatic stress disorder, unspecified; I10 Essential (primary) hypertension
CPT/HCPCS: 36415; 71046; 80048; 83605; 84484; 85007; 85025; 87040; 93005; 94640; 96365; 96367; 96375; 99285; C9803; J0456; J0696; U0003; U0005

== ENCOUNTER → 2022-06-24 17:52 | Outpatient (CLI) | payer MEDICARE, MEDICAID, SELFPAY ==
[2022-06-24 19:56] LABS: Barbiturates Screen,Urine Negative ng/ml (<200)
[2022-06-24 19:57] LABS: Amphetamine/Metha Screen,Urine Negative ng/ml (<1000); Benzodiazepines Screen,Urine Positive ng/ml (<200)
[2022-06-24 19:58] LABS: Cannabinoid Screen,Urine Negative ng/ml (<50)
[2022-06-24 19:59] LABS: Cocaine Screen,Urine Negative ng/ml (<300)
[2022-06-24 20:01] LABS: Methadone Screen,Urine Negative ng/ml (<300); Opiate Screen,Urine Negative ng/ml (<300)
[2022-06-24 20:02] LABS: Phencyclidine Screen,Urine Negative ng/ml (<25)
== END ==
PROVIDERS: PCP Emergency Medicine; Visit Provider Emergency Medicine
DX: M25.511 Pain in right shoulder (principal)
CPT/HCPCS: 80305

== ENCOUNTER → 2022-10-15 23:38 | Outpatient (CLI) | payer MEDICARE, MEDICAID, SELFPAY ==
[2022-10-15 19:28] LABS: Amphetamine/Metha Screen,Urine Negative ng/ml (<1000)
[2022-10-15 19:29] LABS: Barbiturates Screen,Urine Negative ng/ml (<200)
[2022-10-15 19:31] LABS: Benzodiazepines Screen,Urine Negative ng/ml (<200)
[2022-10-15 19:32] LABS: Cannabinoid Screen,Urine Negative ng/ml (<50); Cocaine Screen,Urine Negative ng/ml (<300)
[2022-10-15 19:33] LABS: Methadone Screen,Urine Negative ng/ml (<300)
[2022-10-15 19:34] LABS: Opiate Screen,Urine Positive ng/ml (<300); Phencyclidine Screen,Urine Negative ng/ml (<25)
== END ==
PROVIDERS: PCP Emergency Medicine; Visit Provider Emergency Medicine
DX: M25.511 Pain in right shoulder (principal)
CPT/HCPCS: 80305

== ENCOUNTER → 2022-11-08 14:27 | Outpatient (CLI) | payer MEDICARE, MEDICAID, SELFPAY ==
[2022-11-08 17:09] LABS: Amphetamine/Metha Screen,Urine Negative ng/ml (<1000)
[2022-11-08 17:10] LABS: Barbiturates Screen,Urine Negative ng/ml (<200)
[2022-11-08 17:11] LABS: Benzodiazepines Screen,Urine Negative ng/ml (<200); Cannabinoid Screen,Urine Negative ng/ml (<50)
[2022-11-08 17:12] LABS: Cocaine Screen,Urine Negative ng/ml (<300)
[2022-11-08 17:13] LABS: Methadone Screen,Urine Negative ng/ml (<300); Opiate Screen,Urine Positive ng/ml (<300)
[2022-11-08 17:14] LABS: Phencyclidine Screen,Urine Negative ng/ml (<25)
== END ==
PROVIDERS: PCP Emergency Medicine; Visit Provider Emergency Medicine
DX: M25.511 Pain in right shoulder (principal)
CPT/HCPCS: 80305

== ENCOUNTER → 2023-02-04 08:25 | Outpatient (CLI) | payer MEDICARE, MEDICAID, SELFPAY ==
[2023-02-04 19:41] LABS: Amphetamine/Metha Screen,Urine Negative ng/ml (<1000); Barbiturates Screen,Urine Negative ng/ml (<200)
[2023-02-04 19:43] LABS: Cannabinoid Screen,Urine Negative ng/ml (<50)
[2023-02-04 19:44] LABS: Cocaine Screen,Urine Negative ng/ml (<300)
[2023-02-04 19:45] LABS: Opiate Screen,Urine Negative ng/ml (<300)
[2023-02-04 19:47] LABS: Phencyclidine Screen,Urine Negative ng/ml (<25)
[2023-02-04 19:50] LABS: Benzodiazepines Screen,Urine Negative ng/ml (<200)
[2023-02-04 20:22] LABS: Methadone Screen,Urine Negative ng/ml (<300)
== END ==
PROVIDERS: PCP Emergency Medicine; Visit Provider Emergency Medicine
DX: Z79.899 Other long term (current) drug therapy (principal)
CPT/HCPCS: 80305